=== PATIENT | female | born 1995 | race Caucasian/White ===

== ENCOUNTER 2017-12-23 16:17 | Emergency (ER) | payer BC, SELFPAY ==
[2017-12-23 16:18] VITALS: BP 123/90; PULSE 79; RESP 16; TEMP 37.1; O2SAT 98; BMI 32.5
--- NOTE | 2017-12-23 16:38 | EKG12_ITS ---
Test Reason : CP Blood Pressure : / mmHG Vent. Rate : 075 BPM Atrial Rate : 075 BPM P-R Int : 148 ms QRS Dur : 086 ms QT Int : 382 ms P-R-T Axes : 066 078 042 degrees QTc Int : 426 ms Normal sinus rhythm Normal ECG Confirmed by LAUREANO MARIN, RAMA ([id number]), film or videotape editor YAZ GRIMES ([id number] on 12/25/2017 10:24:33 AM Referred By: ENEIDA Confirmed By:RAMA TINSLEY MD
--- NOTE | 2017-12-23 16:40 | RAD_ITS ---
STUDY: X-RAY CHEST REASON FOR EXAM: Female, 22 years old. Chest pain TECHNIQUE: Single AP portable view of the chest. COMPARISON: None. FINDINGS: The lungs are clear and expanded. There is no demonstrated pleural abnormality. Normal size heart. Normal mediastinum and saul. Normal visualized pulmonary arteries. Normal visualized aortic arch and descending thoracic aorta. Normal visualized thoracic spine. Normal visualized ribs, clavicles, and shoulders. There is no demonstrated abnormality of the visualized soft tissue structures of the upper abdomen. RAD/Chest 1 View (Portable) IMPRESSION: Normal x-ray examination of the chest. Electronically Signed: Salvador Benton MD at 16:54 EST , Service support ,
[2017-12-23 16:45] VITALS: O2SAT 99
[2017-12-23] MEDS: 0.9% Normal Saline 1,000 ML 150 ML IV (16:49)
[2017-12-23] MEDS: Aspirin 81 MG TAB.CHEW 324 MG PO (16:49)
[2017-12-23 16:52] LABS: Absolute Lymphocyte Count 2.77 X10^3/ul (0.83-4.51); Absolute Neutrophil Count 6.6 X10^3/uL (2.0-7.7); Basophil# 0.03 X10^3/uL; Basophil% 0.3 % (0-1); Eosinophil# 0.18 X10^3/uL; Eosinophils% 1.7 % (0-5); Hematocrit 41.5 % (37-47); Hemoglobin 13.5 g/dl (12.0-15.0); Lymphocyte # 2.77 X10^3/ul (4.0); Lymphocyte % 26.9 % (19-41); Mean Corp Hgb Conc 32.5 g/gl (32-36); Mean Corpuscular Volume 95.4 fL (81-99); Mean Platelet Vol. 10.8 fl (6.2-12.0); Monocyte# 0.71 X10^3/uL; Monocyte% 6.9 % (0-10); Neutrophil % 64.1 % (47-70); POSITIVE COUNT NO; POSITIVE DIFFERENTIAL NO; POSITIVE MORPHOLOGY NO; Platelet Count 265 K/mm3 (150-450); RBC Distribution Width SD 41.6 fl (35.1-43.9); Red Blood Count 4.35 M/mm3 (4.2-5.4); White Blood Count 10.3 K/mm3 (4.4-11.0)
[2017-12-23 17:17] LABS: Anion Gap 9 (5-15); BUN 15 mg/dL (7-18); BUN/Creat Ratio 23.4 RATIO (10-20); Calcium,Total 8.7 mg/dL (8.5-10.1); Chloride 105 mmol/L (98-107); Creatinine, Serum 0.64 mg/dL (0.55-1.02); EST Glomerular Filtration Rate 122 mL/min (>60); Est Glom Filt Rate - Afr Amer 147 mL/min (>60); Estimated Creatinine Clearance 118.05 ml/min; Glucose 85 mg/dL (74-106); Potassium 3.7 mmol/L (3.5-5.1); Sodium Level 140 mmol/L (136-145)
[2017-12-23 17:21] LABS: D-Dimer Quantitative (DVT/PE) 0.28 FEU/ug/m (0.27-0.49)
[2017-12-23 17:25] VITALS: BP 134/82; PULSE 73; RESP 15; O2SAT 95
[2017-12-23 17:38] LABS: Pregnancy, Serum, hCG Quali. NEGATIVE Negative (0-9 Nonpreg)
--- NOTE | 2017-12-23 17:42 | ED.VISSUMM ---
- ER Visit Summary Date of Service: 12/23/17 Chief Complaint: Chest pain History of Present Illness: The patient is a 22 F is been having intermittent sharp pain along the left sternal border today. She is concerned about blood clot secondary to prior DVT in her leg. Patient does report increased pain with deep breath but does not medically feel short of breath. She does report having recent GI bug. 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 She had an iliac stent placed and is only on anticoagulation for a few months. Patient has not had any recent travel or leg swelling. Physical Examination: Vital signs are unremarkable. Head and neck examination is normal. Heart is regular rate and rhythm. Lung sounds are clear. She does have reproducible tenderness along the left sternal border. Abdomen is soft nontender. Lower extremity examination was no significant edema or tenderness. Test Results: Chest x-ray is unremarkable. EKG is sinus at 75 with no sign of acute ischemia. CBC and chemistry studies normal. Troponin is less than 0.02. D-dimer 0.28. Emergency Department Course and Treatment: Patient received aspirin on arrival. On repeat evaluation she is resting comfortably. Test results were discussed with her. Should be treated with Naprosyn and a short course of prednisone to treat costochondritis. Treatment Plan: [] Disposition: Discharge Impression: Costochondritis This note was generated with [employer] dictation software. It may contain incorrect words, spelling, and punctuation that were not noted in review of the chart prior to signing ED Disposition - Plan for ED Patient: Chief Complaint: Chest Pain Referrals: Ayla Lorenzo [Primary Care Provider] -
--- NOTE | 2017-12-23 17:45 | ED.DEP ---
ED Disposition - Plan for ED Patient: Disposition: Home or Assisted Living Chief Complaint: Chest Pain Instructions: ED Chest Pain Costochondritis Prescriptions: Naproxen [Naprosyn] 500 mg PO BID PRN #20 tablet Prednisone [Deltasone] 60 mg PO DAILY #15 tablet Referrals: Ayla Lorenzo [Primary Care Provider] - 1-2 Weeks
[2017-12-23 17:54] VITALS: BP 126/70; PULSE 72; RESP 17; O2SAT 99
== END 2017-12-23 17:55 | disposition home or self-care (01) ==
PROVIDERS: Emergency Provider Emergency Medicine; Family Provider Family Medicine; PCP Family Medicine
DX: M94.0 Chondrocostal junction syndrome [Tietze] (principal); Z86.718 Personal history of other venous thrombosis and embolism
CPT/HCPCS: 71045; 80048; 84484; 84703; 85025; 85379; 93005; 96360; 99284; J7030; A4216